=== PATIENT | female | born 1990 | race Caucasian/White ===

== ENCOUNTER 2016-08-24 18:35 | Observation (INO) | payer OTHER ==
[~2016-08-24 18:35] MED LIST: BCP; DARVOCET-N 1001 TAB PO; IBUPROFEN600 MG; NEXIUM; NO MEDICATIONS; NORCO 5/325 TAB1 TAB PO; PHENERGAN25 MG PO; ZOFRAN ODT4 MG/UDTAB PO; ZOFRAN8 MG PO
[2016-08-24 19:37] LABS: BASO % 0.1 % (0-2); EOS % 0.9 % (0-7); EOSINOPHIL ABSOLUTE COUNT 0.1 tho/cmm (0.0-0.7); HCT-HEMATOCRIT 35.5 % (34.0-49.0); HGB-HEMOGLOBIN 12.2 gm/dl (12.0-15.5); IMMATURE GRANULOCYTES ABSOLUTE 0.06 tho/cmm (0-0.03); IMMATURE GRANULOCYTES PERCENT 0.6 % (0-0.3); LYMPH % 28.2 % (20-45); LYMPH ABSOLUTE COUNT 2.8 tho/cmm (0.8-4.5); MCH (MEAN CORPUSCULAR HGB) 30.3 pg (28.0-32.0); MCHC MEAN CORPUSCULAR HGB CONC 34.4 % (32.0-36.0); MCV (MEAN CELL VOLUME) 88.3 fl (82.0-96.0); MEAN PLATELET VOLUME 10.4 cmc (9.4-12.4); MONO % 9.1 % (0-12); MONOCYTE ABSOLUTE COUNT 0.9 tho/cmm (0.0-1.2); NEUTROPHIL ABSOLUTE COUNT 6.1 tho/cmm (1.6-8.0); NEUTROPHIL-AUTOMATED 6.1 tho/cmm (1.6-8.0); NEUTROPHILS % 61.1 % (40-80); PLATELET COUNT 254 tho/cmm (150-450); RED BLOOD COUNT 4.02 mil/cmm (4.00-5.20); RED CELL DISTRIBUTION WIDTH 12.8 % (12.4-16.4)
[2016-08-24] MEDS ORDERED: ZYRTEC10 M7 PO (19:38)
[2016-08-24] MEDS ORDERED: PRENATAL TABLE1 EAC4 PO (19:38)
[2016-08-24] MEDS ORDERED: FLONASE ALLERG9.9 ML (19:39)
[2016-08-24] MEDS ORDERED: DICLEGIS DR 101 EACH PO (19:39)
[2016-08-24] MEDS ORDERED: LABETALOL HCL200 M1 PO (19:39)
[2016-08-24] MEDS ORDERED: MAXZIDE 37.5 M1 EAC1 PO (19:40)
[2016-08-24 19:53] LABS: ALB/GLOB RATIO 0.7 (0.8-2.0); ALBUMIN 2.8 g/dl (3.5-5.0); ALKALINE PHOSPHATASE 182 U/L (33-138); ALT/SGPT 23 U/L (12-78); ANION GAP 16 mmol/L (0-20); AST/SGOT 17 U/L (10-40); BILIRUBIN,TOTAL 0.2 mg/dl (0-1.5); BLOOD UREA NITROGEN 9 mg/dl (6-24); CALCIUM 8.8 mg/dl (8.5-10.5); CARBON DIOXIDE-VENOUS 21 mmol/L (22-32); CHLORIDE 108 mmol/l (96-110); CREATININE 0.58 mg/dl (0.50-1.10); SODIUM 141 mmol/L (135-145); eGFR VALUE FOR BLACK >90 mL/Min
[2016-08-24 19:54] LABS: GLUCOSE 67 mg/dL (70-110)
[2016-08-24 19:58] LABS: URINE PRT/CR RATIO 0.3 Ratio (0.0-0.20); URINE TOTAL PROTEIN-RANDOM 5.1 mg/dl (<11.8)
== END 2016-08-24 21:00 ==
LOC: LDR 18:35
PROVIDERS: Obstetrics & Gynecology; ADMIT Obstetrics & Gynecology
DX: O13.3 Gestational [pregnancy-induced] hypertension without significant proteinuria, third trimester (principal); Z3A.35 35 weeks gestation of pregnancy; Z79.899 Other long term (current) drug therapy

== ENCOUNTER 2016-09-03 18:59 | Inpatient (IN) | payer OTHER ==
[~2016-09-03 18:59] MED LIST changes: +DICLEGIS DR 101 EACH PO; +FLONASE ALLERG9.9 ML; +LABETALOL HCL200 M1 PO; +MAXZIDE 37.5 M1 EAC1 PO; +PRENATAL TABLE1 EAC4 PO; +ZYRTEC10 M7 PO
[2016-09-03 19:47] LABS: BASO % 0.1 % (0-2); EOS % 1.2 % (0-7); EOSINOPHIL ABSOLUTE COUNT 0.1 tho/cmm (0.0-0.7); HCT-HEMATOCRIT 35.4 % (34.0-49.0); HGB-HEMOGLOBIN 12.3 gm/dl (12.0-15.5); IMMATURE GRANULOCYTES ABSOLUTE 0.06 tho/cmm (0-0.03); IMMATURE GRANULOCYTES PERCENT 0.6 % (0-0.3); LYMPH ABSOLUTE COUNT 2.7 tho/cmm (0.8-4.5); MCH (MEAN CORPUSCULAR HGB) 30.4 pg (28.0-32.0); MCHC MEAN CORPUSCULAR HGB CONC 34.7 % (32.0-36.0); MCV (MEAN CELL VOLUME) 87.4 fl (82.0-96.0); MEAN PLATELET VOLUME 10.3 cmc (9.4-12.4); MONOCYTE ABSOLUTE COUNT 1.2 tho/cmm (0.0-1.2); NEUTROPHIL ABSOLUTE COUNT 6.6 tho/cmm (1.6-8.0); NEUTROPHIL-AUTOMATED 6.6 tho/cmm (1.6-8.0); NEUTROPHILS % 62.1 % (40-80); PLATELET COUNT 246 tho/cmm (150-450); RED BLOOD COUNT 4.05 mil/cmm (4.00-5.20); RED CELL DISTRIBUTION WIDTH 12.6 % (12.4-16.4); WHITE BLOOD COUNT 10.7 tho/cmm (4.0-10.0)
[2016-09-05 02:04] LABS: BLOOD GAS BASE EXCESS -2 mM/L (-/+3); CORD BLD ABG BICARB 24 mmol/L (17-27); CORD BLOOD ART. PCO2 47 mmHg (32-66); CORD BLOOD PH ARTERIAL 7.33 Units (7.18-7.38)
[2016-09-07] MEDS ORDERED: IBUPROFEN800 M1 PO (02:35)
[2016-09-07] MEDS ORDERED: PERCOCET 5-3251 EACH PO (02:36)
== END 2016-09-07 12:00 | DRG 765 ==
LOC: LDR 18:59 → OBGD 09-05 02:44 → OBGF 09-05 16:39
PROVIDERS: ADMIT Obstetrics & Gynecology
PROC: 10907ZC Drainage of Amniotic Fluid, Therapeutic from Products of Conception, Via Natural or Artificial Opening (ICD-10-PCS; 2016-09-04)
PROC: 3E0P7GC Introduction of Other Therapeutic Substance into Female Reproductive, Via Natural or Artificial Opening (ICD-10-PCS; 2016-09-04)
PROC: 10D00Z1 Extraction of Products of Conception, Low, Open Approach (ICD-10-PCS; principal; 2016-09-05)
DX: O13.4 Gestational [pregnancy-induced] hypertension without significant proteinuria, complicating childbirth (principal); O41.03X0 Oligohydramnios, third trimester, not applicable or unspecified; O62.1 Secondary uterine inertia; Z3A.37 37 weeks gestation of pregnancy; Z37.0 Single live birth
CPT/HCPCS: J0290; J0690; J1170; J2405; J2590; J2795; J7030; J7050